=== PATIENT | female | born 1950 | race Asian ===

== ENCOUNTER 2018-05-07 15:26 | Inpatient (IN) | payer MEDICARE ==
[~2018-05-07] VITALS: Ht 165.1 cm; Wt 47.6 kg
[2018-05-07 16:57] LABS: ANION GAP 17 mmol/L (5-15); BLOOD UREA NITROGEN 11 mg/dL (7-18); CALCIUM 8.6 MG/DL (8.5-10.1); CARBON DIOXIDE 17 MMOL/L (21-32); CHLORIDE 91 MMOL/L (98-107); CREATININE 1.2 MG/DL (0.55-1.30); POTASSIUM 4.9 MMOL/L (3.5-5.1); SODIUM 125 MMOL/L (136-145)
[2018-05-07 17:11] LABS: ALANINE AMINOTRANSFERASE 41 U/L (12-78); ALBUMIN 2.1 G/DL (3.4-5.0); ALBUMIN/GLOBULIN RATIO 0.5 (1.0-2.7); ALKALINE PHOSPHATASE 94 U/L (46-116); ASPARTATE AMINO TRANSFERASE 85 U/L (15-37)
[2018-05-07 17:16] LABS: BILIRUBIN,DIRECT 0.7 MG/DL (0.0-0.3)
[2018-05-07 17:33] LABS: HEMATOCRIT 37.1 % (37.0-47.0); HEMOGLOBIN 12.3 G/DL (12.0-16.0); MEAN CORPUSCULAR VOLUME 108 FL (80-99); PLATELET COUNT 53 K/UL (150-450); RED BLOOD COUNT 3.44 M/UL (4.20-5.40); RED CELL DISTRIBUTION WIDTH 14.1 % (11.6-14.8); WHITE BLOOD COUNT 8.7 K/UL (4.8-10.8)
[2018-05-07 17:36] VITALS: BP 98/68
--- NOTE | 2018-05-07 17:37 | NUR ---
ED Nurse Note: PT. AAOX4. BROUGHT IN TO ER WITH LILI FIGUEROA, PICKED UP AT A DRS OFFICE, FOR ABD PAIN, WITH HX OF PANCREATIC CA, PAIN NOT CONTROLLED. NO N/V/D NOTED
[2018-05-07] MEDS ORDERED: HUMALOG100 UNIT/1 SUBQ (18:13)
[2018-05-07] MEDS ORDERED: MIRALAX17 G2 ORAL (18:13)
[2018-05-07] MEDS ORDERED: MULTIVITAMINS1 EAC2 ORAL (18:13)
[2018-05-07] MEDS ORDERED: MIRTAZAPINE7.5 MG ORAL (18:13)
[2018-05-07] MEDS ORDERED: VIREAD300 MG ORAL (18:13)
[2018-05-07] MEDS ORDERED: ZOFRAN ODT8 MG ORAL (18:13)
[2018-05-07] MEDS ORDERED: PANTOPRAZOLE SO40 MG ORAL (18:13)
[2018-05-07] MEDS ORDERED: BOOST GLUCOSE237 ML PO (18:13)
[2018-05-07] MEDS ORDERED: LANTUS SOL100 UNIT/1 SUBQ (18:13)
[2018-05-07] MEDS ORDERED: CREON DR 12,001 EACH PO (18:13)
[2018-05-07] MEDS ORDERED: DOCUSATE SODIU100 MG ORAL (18:13)
[2018-05-07] MEDS ORDERED: DULCOLAX10 MG RC (18:13)
[2018-05-07] MEDS ORDERED: SENNA LAXATIVE1 EAC1 PO (18:13)
[2018-05-07] MEDS ORDERED: VITAMIN D3400 UNI2 PO (18:13)
[2018-05-07] MEDS ORDERED: OXYCODONE HCL5 M2 ORAL (18:13)
[2018-05-07] MEDS ORDERED: PRO-STAT AWC LI30 ML PO (18:13)
[2018-05-07] MEDS ORDERED: REGLAN10 M1 ORAL (18:13)
[2018-05-07 18:14] LABS: APPEARANCE,URINE CLEAR; BILIRUBIN, URINE 1+ (NEGATIVE); GLUCOSE, URINE (UA) NEGATIVE (NEGATIVE); KETONES,URINE 2+ (NEGATIVE); LEUKOCYTE ESTERASE ,URINE 1+ (NEGATIVE); NITRITE,URINE NEGATIVE (NEGATIVE); PH,URINE 6 (4.5-8.0); PROTEIN,URINE 1+ (NEGATIVE); UROBILINOGEN,URINE 8 MG/DL (0.0-1.0)
[2018-05-07] MEDS ORDERED: SENNOSIDES8.6 MG ORAL (18:14)
[2018-05-07 18:15] LABS: COLOR,URINE YELLOW
[2018-05-07] MEDS ORDERED: Morphine Sulfate 2mg/ml Inj ONE (19:10)
[2018-05-07] MEDS ORDERED: Morphine Sulfate 2mg/ml Inj IVP ONE (19:15)
[2018-05-07 19:30] VITALS: BP 112/74
--- NOTE | 2018-05-07 19:35 | NUR ---
ED Nurse Note: binh:
--- NOTE | 2018-05-07 19:51 | NUR ---
ED Nurse Note: Received report. pt in bed asleep. No distress noted. Will continue to monitor.
[2018-05-07 21:30] VITALS: BP 104/64
--- NOTE | 2018-05-07 21:56 | Emergency Room Report ---
History of Present Illness General Chief Complaint: Abdominal Pain Source: EMS Present Illness HPI 67-year-old female presents to ED for evaluation. Brought in by EMS for abdominal pain. From doctor's office. Patient has pancreatic cancer. Patient resides in a [facility] facility. Pain was high so patient was brought to ER. Blood pressure was low. Pain is sharp, 10 out of 10, nonradiating. Denies fevers or chills. Denies nausea or vomiting. Denies diarrhea. No other aggravating relieving factors. Denies any other associated symptoms Allergies: Coded Allergies: No Known Allergies (Unverified , 05/07/18) Patient History Past Medical History: other - pancreatic cancer Past Surgical History: none Pertinent Family History: none Social History: Denies: smoking, alcohol use, drug use Last Menstrual Period: N/A Now: No Immunizations: UTD Reviewed Nursing Documentation: PMH: Agreed; PSxH: Agreed Nursing Documentation-PMH Past Medical History: No History, Except For Hx Cancer: Yes - PANCREATIC Review of Systems All Other Systems: negative except mentioned in HPI Physical Exam Vital Signs Date Time Temp Pulse Resp B/P (MAP) Pulse Ox O2 Delivery O2 Flow Rate FiO2 05/07/18 15:16 96 16 62/35 96 Room Air 05/07/18 17:36 98.0 Sp02 EP Interpretation: reviewed, normal General Appearance: alert, GCS 15, non-toxic, mild distress, cachetic Head: normocephalic, atraumatic Eyes: bilateral eye normal inspection, bilateral eye PERRL ENT: hearing grossly normal, normal pharynx, no angioedema, normal voice Neck: full range of motion, supple/symm/no masses Respiratory: chest non-tender, lungs clear, normal breath sounds, speaking full sentences Cardiovascular #1: regular rate, rhythm, no edema Cardiovascular #2: 2+ carotid (R), 2+ carotid (L), 2+ radial (R), 2+ radial (L) , 2+ dorsalis pedis (R), 2+ dorsalis pedis (L) Gastrointestinal: normal bowel sounds, non tender, soft, non-distended, no guarding, no rebound, tenderness Rectal: deferred Genitourinary: normal inspection, no CVA tenderness Musculoskeletal: back normal, gait/station normal, normal range of motion, non- tender Neurologic: alert, oriented x3, responsive, motor strength/tone normal, sensory intact, speech normal Psychiatric: judgement/insight normal, memory normal, mood/affect normal, no suicidal/homicidal ideation Reflexes: 3+ bicep (R), 3+ bicep (L), 3+ tricep (R), 3+ tricep (L), 3+ knee (R) , 3+ knee (L) Skin: normal color, no rash, warm/dry, well hydrated Lymphatic: no adenopathy Medical Decision Making Diagnostic Impression: Primary Impression: Intractable abdominal pain Additional Impression: Pancreatic cancer Qualified Codes: C25.9 - Malignant neoplasm of pancreas, unspecified ER Course Hospital Course 67 yo F presents to ED c/o abd pain, BP low. h/o pancreatic cancer Differential diagnoses include: BPH, cystitis, pyelonephritis, kidney stone Clinical course Patient placed on stretcher. security monitor. After initial history and physical I ordered labs, IV fluids, pain meds Labs - no leukocytosis, Hb/Hct stable, Na 125, LFts elevated BP initially low. Improved with IV fluids. Patient is DO NOT RESUSCITATE, comfort measures Case discussed with Dr. Robrets and he agreed to accept the patient to his service for further care and support I feel this is a highly complex case requiring extensive working including EKG/ Rhythm strip, Xray/CT/US, Blood/urine lab work, repeat exams while in ED, and administration of strong opiates/narcotics for pain control, admission to hospital or close patient follow up. Diagnosis - intractable abdominal pain, pancreatic cancer Patient admitted to floor in serious condition Labs Test 05/07/18 16:20 05/07/18 17:05 05/07/18 17:27 Sodium Level 125 MMOL/L (136-145) Potassium Level 4.9 MMOL/L (3.5-5.1) Chloride Level 91 MMOL/L (98-107) Carbon Dioxide Level 17 MMOL/L (21-32) Anion Gap 17 mmol/L (5-15) Blood Urea Nitrogen 11 mg/dL (7-18) Creatinine 1.2 MG/DL (0.55-1.30) Estimat Glomerular Filtration Rate 44.8 mL/min (>60) Glucose Level 198 MG/DL (74-106) Calcium Level 8.6 MG/DL (8.5-10.1) Total Bilirubin 2.0 MG/DL (0.2-1.0) Direct Bilirubin 0.7 MG/DL (0.0-0.3) Aspartate Amino Transf (AST/SGOT) 85 U/L (15-37) Alanine Aminotransferase (ALT/SGPT) 41 U/L (12-78) Alkaline Phosphatase 94 U/L (46-116) Total Protein 6.4 G/DL (6.4-8.2) Albumin 2.1 G/DL (3.4-5.0) Globulin 4.3 g/dL Albumin/Globulin Ratio 0.5 (1.0-2.7) Lipase 70 U/L (73-393) White Blood Count 8.7 K/UL (4.8-10.8) Red Blood Count 3.44 M/UL (4.20-5.40) Hemoglobin 12.3 G/DL (12.0-16.0) Hematocrit 37.1 % (37.0-47.0) Mean Corpuscular Volume 108 FL (80-99) Mean Corpuscular Hemoglobin 35.7 PG (27.0-31.0) Mean Corpuscular Hemoglobin Concent 33.1 G/DL (32.0-36.0) Red Cell Distribution Width 14.1 % (11.6-14.8) Platelet Count 53 K/UL (150-450) Mean Platelet Volume 6.7 FL (6.5-10.1) Neutrophils (%) (Auto) % (45.0-75.0) Lymphocytes (%) (Auto) % (20.0-45.0) Monocytes (%) (Auto) % (1.0-10.0) Eosinophils (%) (Auto) % (0.0-3.0) Basophils (%) (Auto) % (0.0-2.0) Differential Total Cells Counted 100 Neutrophils % (Manual) 83 % (45-75) Lymphocytes % (Manual) 8 % (20-45) Monocytes % (Manual) 6 % (1-10) Eosinophils % (Manual) 0 % (0-3) Basophils % (Manual) 1 % (0-2) Band Neutrophils 2 % (0-8) Platelet Estimate Decreased Platelet Morphology Normal Red Blood Cell Morphology Normal Urine Color Yellow Urine Appearance Clear Urine pH 6 (4.5-8.0) Urine Specific [place] 1.020 (1.005-1.035) Urine Protein 1+ (NEGATIVE) Urine Glucose (UA) Negative (NEGATIVE) Urine Ketones 2+ (NEGATIVE) Urine Blood Negative (NEGATIVE) Urine Nitrite Negative (NEGATIVE) Urine Bilirubin 1+ (NEGATIVE) Urine Ictotest Negative (NEGATIVE) Urine Urobilinogen 8 MG/DL (0.0-1.0) Urine Leukocyte Esterase 1+ (NEGATIVE) Urine RBC 0-2 /HPF (0 - 2) Urine WBC 2-4 /HPF (0 - 2) Urine Squamous Epithelial Cells Few /LPF (NONE/OCC) Urine Calcium Oxalate Crystals Few /LPF (NONE) Urine Amorphous Sediment Few /LPF (NONE) Urine Bacteria Few /HPF (NONE) Last Vital Signs Date Time Temp Pulse Resp B/P (MAP) Pulse Ox O2 Delivery O2 Flow Rate FiO2 05/07/18 21:30 97.9 100 14 104/64 97 Room Air Status: improved Disposition: ADMITTED INPATIENT Condition: Serious Referrals: NON PHYSICIAN (PCP) Freddie Steiner MD May 07, 2018 21:56
[2018-05-07 22:35] VITALS: BP 112/77
--- NOTE | 2018-05-07 22:39 | NUR ---
NURSE NOTES: Patient received from [facility] . Patient 67 -yrs old female from ED . Brought from EMS for abdominal pain from doctors office . patient vss, afebrile . patient denies any pain at this time . no sob/ no n/v noted . RH 22 H/L Patent and intact . patient personal belongings checked and patient unable to sign. patient family and MD notified patient location 309 bed 1 . Patient skin intact . patient incontinent of urine . keep clean and dry . call light within reach . bed in low position at all times . will continue to monitor Addendum: 05/08/18 at 0601 by INA SANDS LVN patient bilateral lower extremities swelling noted and elevated with pillows
--- NOTE | 2018-05-07 22:39 | NUR ---
TRANSFER TO FLOOR: Patient transferred to [facility] as ordered, per MD Roberts. Report given to NASEEM Davis. Belongings and medications given to Susan GUSMAN per transport. Pt stable.
[2018-05-08] VITALS: BP 101/67
[2018-05-08] MEDS ORDERED: Morphine Sulfate 2mg/ml Inj IVP PRN (00:45)
--- NOTE | 2018-05-08 02:45 | History and Physical Report ---
DATE OF ADMISSION: 05/07/2018 REASON FOR ADMISSION: Abdominal pain in the setting of pancreatic cancer and malignant ascites. HISTORY: This is a 67-year-old [place]ian female, who has advanced pancreatic carcinoma as well as chronic hepatitis B. she is at a [facility] facility with comfort care measures in place. She receives weekly paracentesis for comfort and the next one is actually scheduled tomorrow. Hers session last week, however, was not performed as she was told she did not have much ascitic fluid to remove. Today, the patient had increasing abdominal pain. She was apparently at her [employer] office because of the pain and low blood pressure readings noted. She was transported to this emergency room. In the ER at [facility], she was given fluid boluses and improved in addition to pain control with intravenous morphine. She is admitted for further care. PAST MEDICAL HISTORY: 1. Pancreatic cancer with malignant ascites. 2. 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 3. Hepatitis B. 4. Malignant ascites. 5. Type 2 diabetes mellitus. 6. Gastroesophageal reflux disease. 7. Depression. 8. Portal hypertension. 9. Protein-calorie malnutrition. 10. History of urinary tract infection. 11. Failure to thrive. 12. Advance directives DNR. MEDICATIONS: Reviewed and reconciled. ALLERGIES: Gadolinium contrast. SOCIAL HISTORY: Negative for history of smoking, alcohol, or substance abuse. FAMILY HISTORY: Noncontributory. REVIEW OF SYSTEMS: No fevers or chills. She does have chronic recurring nausea. She has not had any vomiting today. There is no history of seizures. She has not had any melena or bright red blood per rectum. There is no history of asthma. There is no history of abnormal blood clotting or DVT's. Her diabetes is managed with insulin. There is no history of thyroid disorder. There is no known history of cardiovascular disease. PHYSICAL EXAMINATION: VITAL SIGNS: Afebrile. Blood pressure in the emergency room was 62/35, heart rate 96, respiratory rate 16, and oxygen saturation 96% on room air. Presently, 104/64, pulse 99, respirations 17, and temperature 97.2. HEENT: Temporal wasting. Pale conjunctivae. Dry mucous membranes. No jugular venous distention. LUNGS: Diminished breath sounds. No rales. CARDIAC: Regular rhythm and rate. Normal S1, S2 with no murmur. BREASTS: Atrophic. ABDOMEN: Moderately ascitic. There is mild tenderness in the midepigastric region. No guarding or rebound. EXTREMITIES: Without clubbing, cyanosis, edema, calf tenderness, or cords. NEUROLOGIC: Nonfocal. LABORATORY DATA: Sodium 125, potassium 4.9, chloride 91, bicarb 17, BUN 11, creatinine 1.2, and glucose 198. Albumin 2.1. Amylase and lipase are normal. White count 8.7 and hemoglobin 12.3. Urinalysis with 2 to 4 white cells. IMPRESSION: 1. Abdominal pain due to underlying malignancy and associated complications. 2. Malignant ascites. 3. History of chronic hepatitis B. 4. Severe protein-calorie malnutrition. 5. Hypovolemic shock, improved. 6. Hyponatremia. 7. Hypochloremia. 8. Metabolic acidosis. 9. Type 2 diabetes mellitus with hyperglycemia. PLAN: 1. DNR/DNI. 2. Saline hydration. 3. Discontinue Aldactone. 4. Symptomatic paracentesis. 5. Nutritional support. 6. Volume support by IV route. 7. Pain control. 8. DVT prophylaxis. Alessandro Roberts M.D. DR: DANNY JOB#: [id number] CC:
[2018-05-08 04:00] VITALS: BP 120/77
[2018-05-08] MEDS ORDERED: NovoLOG Insulin Flexpen SUBQ SCH (06:30)
[2018-05-08 07:06] LABS: INR 1.3 (0.9-1.1)
[2018-05-08] MEDS: NovoLOG Insulin Flexpen SUBQ SCH ×4 (07:08→21:00)
[2018-05-08 07:10] LABS: HEMATOCRIT 38.1 % (37.0-47.0); HEMOGLOBIN 12.8 G/DL (12.0-16.0); MEAN CORPUSCULAR VOLUME 106 FL (80-99); PLATELET COUNT 113 K/UL (150-450); RED CELL DISTRIBUTION WIDTH 14.1 % (11.6-14.8); WHITE BLOOD COUNT 10.6 K/UL (4.8-10.8)
[2018-05-08 07:20] LABS: ALANINE AMINOTRANSFERASE 42 U/L (12-78); ALBUMIN 1.9 G/DL (3.4-5.0); ALKALINE PHOSPHATASE 78 U/L (46-116); ANION GAP 11 mmol/L (5-15); ASPARTATE AMINO TRANSFERASE 70 U/L (15-37); BILIRUBIN,TOTAL 1.9 MG/DL (0.2-1.0); BLOOD UREA NITROGEN 13 mg/dL (7-18); CALCIUM 8.7 MG/DL (8.5-10.1); CARBON DIOXIDE 24 MMOL/L (21-32); CHLORIDE 98 MMOL/L (98-107); CREATININE 1.2 MG/DL (0.55-1.30); POTASSIUM 5.1 MMOL/L (3.5-5.1); SODIUM 132 MMOL/L (136-145)
--- NOTE | 2018-05-08 07:43 | NUR ---
NURSE NOTES: Received report from Roro RODRIGEZ. On rounds, patient is awake and alert, no s/s acute distress noted. IVF running per order through right hand IV, IV is asymptomatic. Fall precautions maintained. Called ultrasound and reported that patient's platelets are low and PT/INR is high, US tech reported that she will report results to radiologist. Side rails upx3, bed low and locked, call light in reach. Will continue to monitor.
--- NOTE | 2018-05-08 07:43 | NUR ---
HAND-OFF: Report given to Kisha Berger Patient i stable conditions.
[2018-05-08 08:00] VITALS: BP 109/75
--- NOTE | 2018-05-08 08:04 | NUR ---
NURSE NOTES: Spoke with Jessica in US. Reported that no anticoagulants have been given while patient has been on unit, patient was admitted last night after 2200, unknown if patient was given any anticoagulants prior to admission, I reported this to Jessica. Jessica reports she will report this and lab results to radiologist. Will continue to monitor.
[2018-05-08] MEDS: Pancrease Cap ORAL SCH ×3 (09:25→18:00)
--- NOTE | 2018-05-08 09:46 | NUR ---
NURSE NOTES: Patient taken down for ultrasound.
--- NOTE | 2018-05-08 10:00 | NUR ---
NURSE NOTES: Called Dr. Roberts's office and left message with MD's wood model maker, reported that patient's platelet count is low at 113. Awaiting callback with further orders from MD. Will continue to monitor.
--- NOTE | 2018-05-08 10:10 | Pre-Procedure Note/Attestation ---
Pre-Procedure Note/Attestation Complete Prior to Procedure Planned Procedure: not applicable Procedure Narrative: Paracentesis Indications for Procedure Pre-Operative Diagnosis: Ascites Attestation I attest that I discussed the nature of the procedure; its benefits; risks and complications; and alternatives (and the risks and benefits of such alternatives ), prior to the procedure, with the patient (or the patient's legal business representative). I attest that, if there was a reasonable possibility of needing a blood transfusion, the patient (or the patient's legal business representative) was given the [facility] standardized written summary, pursuant to the Tony Irlanda Blood Safety Act ([place] Health and Safety Code # 1645, as amended). I attest that I re-evaluated the patient just prior to the surgery and that there has been no change in the patient's H&P, except as documented below: Pramod Kimball MD May 08, 2018 10:09
--- NOTE | 2018-05-08 10:11 | Brief Operative Note ---
Immediate Post Operative Note Operative Note Chief Complaint: distention Pre-op Diagnosis: Ascites Procedure: Paracentesis Post-op Diagnosis: same as pre-op Surgeon: Vijay Mayorga Anesthesia: local Specimen: yes - cloudy yellow fluid Complications: none Condition: stable Fluids: none Implant(s) used?: No Pramod Mayorga MD May 08, 2018 10:10
--- NOTE | 2018-05-08 10:13 | NUR ---
NURSE NOTES: Spoke with Dr. Roberts regarding patient's platelet count, MD is aware that platelet's are 113. MD ordered to give heparin as ordered and to not hold due to patient's high risk for VTE status. Inquired if MD would like hold parameters for heparin, MD did not give hold parameters. Informed MD that sodium is 134, MD ordered to continue IVF as ordered. Will continue to monitor.
--- NOTE | 2018-05-08 11:02 | NUR ---
NURSE NOTES: Patient returned from ultrasound. No s/s acute distress. Per report from [facility], 3900mL of abdominal paracentesis fluid removed. Specimen sent to lab for testing per MD order. Will continue to monitor.
[2018-05-08 12:00] VITALS: BP 105/65
--- NOTE | 2018-05-08 12:17 | Diagnostic Imaging Report ---
Indications: Ascites Technique: Ultrasound used to localize optimal puncture site. Sterile prepping and draping . Local anesthesia with 1% lidocaine. Under real-time ultrasound guidance, puncture peritoneal space using paracentesis needle. Stylet removed. Catheter placed to vacuum bottle suction. Total 3.9 liters of cloudy yellow fluid aspirated. Patient tolerated procedure well, without immediate complication. A specimen was sent to the lab Findings: Followup sonography demonstrates complete resolution of peritoneal fluid. Impression: Successful ultrasound-guided paracentesis, yielding 3.9 liters of fluid
--- NOTE | 2018-05-08 13:22 | NUR ---
NURSE NOTES: Placed patient on SPR air mattress for prophylactic skin protection.
[2018-05-08] MEDS: Heparin 5000 units/ml inj SUBQ SCH ×2 (14:35→21:43)
[2018-05-08 16:00] VITALS: BP 111/72
--- NOTE | 2018-05-08 19:25 | NUR ---
NURSE NOTES: Report taken from NASEEM Beard. patient is awake and in bed, A&Ox3. No signs of distress on room air. IV site c/d/i and patent. Patients skin is intact, on SPR mattress. States that pain is 4/10 currently. Somewhat incontinent but does use bedpan for self voiding. Platelet count low and MD made aware. Kisha endorsed that MD would like to continue Heparin injections despite platelet count since patient is bedbound. Bed in lowest position, call light within reach.
--- NOTE | 2018-05-08 19:30 | NUR ---
HAND-OFF: Report given to Randell GUSMAN. Patient in stable condition.
[2018-05-08 20:00] VITALS: BP 114/74
--- NOTE | 2018-05-08 20:15 | Progress Note ---
DATE: 05/08/2018 INTERNAL MEDICINE PROGRESS NOTE SUBJECTIVE: The patient is more alert. Still withdrawn and lethargic overall. Her pain control in the abdomen is better. She underwent paracentesis earlier today. OBJECTIVE: VITAL SIGNS: Blood pressure 109/75, pulse 97, and respirations 18. Afebrile. LUNGS: Clear. CARDIAC: Regular. Normal S1, S2. ABDOMEN: Soft. drawbridge tender in the mid upper quadrant area. The peritoneal fluid was cloudy in appearance. No complications were noted. EXTREMITIES: Without edema. IMPRESSION: 1. Possible peritonitis. 2. Metastatic pancreatic carcinoma. 3. Ascites, malignant. 4. Hyponatremia, improved with sodium increasing from 125 to 132. 5. Hypochloremia, resolved. 6. Type 2 diabetes mellitus, on insulin by sliding scale. 7. Lactic acidosis, resolved. 8. Severe protein-calorie malnutrition. PLAN: 1. DVT prophylaxis. 2. Adjust intravenous fluids. 3. Empiric antimicrobials. 4. Insulin coverage by sliding scale. 5. Pain control. 6. Await urine cultures of the peritoneal fluid and cell count. Alessandro Roberts M.D. DR: DANNY JOB#: [id number] CC:
--- NOTE | 2018-05-08 21:00 | NUR ---
NURSE NOTES: Patient refused insulin coverage, BS 142.
[2018-05-08] MEDS: Piperacillin/Tazobactam 3.375 GM in NS 110 ML IVPB SCH (21:35)
[2018-05-09] VITALS (7 sets, daily range): BP systolic 111–119; BP diastolic 73–82
[2018-05-09] MEDS: Piperacillin/Tazobactam 3.375 GM in NS 110 ML IVPB SCH ×3 (05:40→21:15)
[2018-05-09] MEDS: Heparin 5000 units/ml inj SUBQ SCH ×3 (05:41→21:24)
[2018-05-09] MEDS: NovoLOG Insulin Flexpen SUBQ SCH ×4 (05:42→21:25)
--- NOTE | 2018-05-09 07:25 | NUR ---
HAND-OFF: Report given to NASEEM Montgomery. Addendum: 05/09/18 at 0736 by Randell Nunes RN NASEEM Garcia Patient began asking for laxatives to help with bowel movement. endorsed to Jose.
--- NOTE | 2018-05-09 07:30 | NUR ---
NURSE NOTES: Received report from NASEEM Mejias. Rounding done with outgoing nurse. Patient a/o x4 lying on the bed. Denies any pain at this time. Patient stated did not BM for 4 days. Will notify to Dr. Roberts. Bed in lowest position, call light within reach. Will continue to monitor.
--- NOTE | 2018-05-09 08:00 | NUR ---
NURSE NOTES: Called Dr. Roberts and left the message. Waiting for MD call back.
[2018-05-09] MEDS: Pancrease Cap ORAL SCH ×3 (08:53→17:41)
--- NOTE | 2018-05-09 09:55 | NUR ---
NURSE NOTES: MD did not call back. Called Dr. Roberts and left message again.
[2018-05-09] MEDS: Docusate 250mg cap ORAL SCH (10:12)
[2018-05-09] MEDS ORDERED: Milk of Magnesia 30ml Ud ORAL SCH (10:30)
--- NOTE | 2018-05-09 10:30 | NUR ---
NURSE NOTES: Dr. Roberts ordered laxatives and will be given as ordered.
--- NOTE | 2018-05-09 12:05 | NUR ---
RD ASSESSMENT & RECOMMENDATIONS SEE CARE ACTIVITY FOR COMPLETE ASSESSMENT DAILY ESTIMATED NEEDS: Needs based on CA dx, underweight/ 42kg 30-40 kcals/kg 9032-8498 total kcals 1-1.5 g protein/kg 42-63 g total protein 20-25 mL/kg 840-1050 total fluid mLs NUTRITION DIAGNOSIS: Increased kcal/prot needs R/T catabolic dx, underweight status as evidenced by dx of metastatic pancreatic carcinoma, pt noted w/ mild-moderate generalized wasting, 95% IBW, currently w/ poor PO intake CURRENT DIET:CCHO HIGH/ pureed moist PO DIET RECOMMENDATIONS: Liberalized REGULAR diet w/ poor PO intake, texture as tolerated or per GLOBAL ACCOUNT MANAGER ADDITIONAL RECOMMENDATIONS: * RECALIBRATED bedscale wt for accurate CBW- w/ added SPR mattress * Glucerna 1 tetra aide BID in b/w meals * Monitor PO tolerance- pancreatic CA * GLOBAL ACCOUNT MANAGER eval for appropriate texture- on pureed moist texture at this time * W/ PO intake consistently >50%: LOW NA, CCHO LOW diet
--- NOTE | 2018-05-09 13:30 | NUR ---
NURSE NOTES: plt was [address] Roberts notified regarding heparin. said hold for now. Noted and carried out.
--- NOTE | 2018-05-09 16:28 | Internal Med Progress Note ---
Subjective Date of Service: May 09, 2018 Physician Name Alessandro Roberts Attending Physician Alessandro Roberts MD Current Medications Medications (Trade) Dose Ordered Sig/Bella Route PRN Reason Start Time Stop Time Status Last Admin Dose Admin Amylase/Lipase/ Protease (Pancrease) 2 ea THREE TIMES A DAY ORAL 05/08/18 09:00 06/07/18 08:59 05/09/18 13:34 Bisacodyl (Dulcolax) 10 mg DAILYPRN PRN RECTAL Constipation 05/09/18 10:30 06/08/18 10:29 Dextrose (Dextrose 50%) 25 ml Q30M PRN IV Hypoglycemia 05/08/18 00:45 06/07/18 00:44 Dextrose (Dextrose 50%) 50 ml Q30M PRN IV Hypoglycemia 05/08/18 00:45 06/07/18 00:44 Docusate Sodium (Colace) 250 mg DAILY ORAL 05/09/18 10:30 06/08/18 10:29 05/09/18 10:12 Heparin Sodium (Porcine) (Heparin 5000 units/ml) 5,000 units EVERY 8 HOURS SUBQ 05/08/18 14:00 06/07/18 13:59 05/09/18 05:41 Insulin Aspart (NovoLOG) BEFORE MEALS AND HS SUBQ 05/08/18 06:30 06/07/18 06:29 05/09/18 12:06 Magnesium Hydroxide (Mom) 30 ml HSPRN PRN ORAL Constipation 05/09/18 21:00 06/08/18 20:59 Morphine Sulfate (Morphine Sulfate) 2 mg Q4H PRN IVP For Pain 05/08/18 00:45 05/15/18 00:44 Ondansetron HCl (Zofran) 4 mg Q6H PRN IVP Nausea & Vomiting 05/08/18 00:45 06/07/18 00:44 05/08/18 09:35 Oxycodone HCl (Roxicodone) 5 mg Q4H PRN ORAL Breakthrough Pain 05/08/18 00:45 05/15/18 00:44 Pantoprazole (Protonix) 40 mg DAILY ORAL 05/08/18 09:00 06/07/18 08:59 05/09/18 08:53 Piperacillin Sod/ Tazobactam Sod 3.375 gm/Sodium Chloride 110 ml @ 27.5 mls/hr Q8HR IVPB 05/08/18 22:00 05/15/18 21:59 05/09/18 13:34 Sodium Chloride 1,000 ml @ 75 mls/hr [id number] IV 05/08/18 17:05 06/07/18 17:04 05/09/18 01:55 Tenofovir Disoproxil Fumarate (Viread) 300 mg DAILY ORAL 05/08/18 09:00 06/07/18 08:59 UNV Allergies: Coded Allergies: No Known Allergies (Unverified , 05/07/18) Objective Last Vital Signs Date Time Temp Pulse Resp B/P (MAP) Pulse Ox O2 Delivery O2 Flow Rate FiO2 05/09/18 12:00 97.7 83 16 119/82 (94) 96 05/09/18 09:00 Room Air Microbiology Date/Time Source Procedure Growth Status 05/07/18 20:10 Nasal Nares MRSA Culture - Final NO METHICILLIN RESISTANT STAPH AUREUS... Complete 05/07/18 20:10 Rectum VRE Culture - Final NO VANCOMYCIN RESISTANT ENTEROCOCCUS ... Complete 05/07/18 20:10 Rectum - Final NO CARBAPENEM-RESISTANT ENTEROBACTERI... Complete Intake and Output 05/08/18 05/09/18 19:00 07:00 Intake Total 1460 ml 380 ml Output Total 3200 ml Balance 1460 ml -2820 ml Intake Oral 560 ml 380 ml IV Total 900 ml Output Urine Total 3200 ml # Voids 1 Assessment/Plan Status Narrative Nurse documented at 9:55am that "i did not call back for orders regarding patient's constipation" This is inaccurate. As reflected in record, orders were entered for such medications at 9:56am. There is no urgency for such meds to be called in before that, as I was making rounds, and planned to see the patient before any orders. Alessandro Roberts MD May 09, 2018 16:28
--- NOTE | 2018-05-09 17:40 | NUR ---
NURSE NOTES: Dr. Roberts came and asked lab for body fluid which was collected 05/07 was cancelled. Called laboratory to find out. They said that will find and call me back.
--- NOTE | 2018-05-09 18:30 | NUR ---
NURSE NOTES: Laboratory called and mentioned. They found the body fluid specimen from the refrigerators and will find out the result. Dr. Roberts notified.
--- NOTE | 2018-05-09 19:25 | NUR ---
HAND-OFF: Report given to NASEEM Mejias.
--- NOTE | 2018-05-09 19:30 | NUR ---
NURSE NOTES: Report taken from NASEEM Garcia. Patient is asleep in bed, arousable with name, A&Ox3 when she is awake. Patient took laxative earlier per order, voided during shift change. Patient is still able to notify RN for bedpan. IV site c/d/i and patent. Patient stated that she wanted to be left alone through the night. RN had to explain the risks and benefits of missing medications. Contacted MD regarding low plt count 113. MD wants to continue heparin administration. Skin is c/d/i, patient on SPR mattress. Bed in lowest position, call light within reach.
[2018-05-09] MEDS ORDERED: Milk of Magnesia 30ml Ud ORAL PRN (21:00)
--- NOTE | 2018-05-09 23:45 | Progress Note ---
DATE: 05/09/2018 SUBJECTIVE: The patient feels better. Less abdominal distention and pain. She is status post paracentesis yesterday. The fluid was cloudy. Despite orders, it was not sent for culture. The patient complains of constipation. OBJECTIVE: VITAL SIGNS: Blood pressure 119/82, pulse 83, respirations 16, afebrile. LUNGS: Diminished breath sounds. CARDIAC: Regular rhythm and rate. Normal S1, S2 with a fourth heart sound. ABDOMEN: Slightly distended. Minimal ascites. Mildly tender in the midepigastric region. EXTREMITIES: No edema is noted. No calf tenderness or cords. LABORATORY DATA: No new lab studies today. IMPRESSION: 1. Metastatic pancreatic carcinoma. 2. Malignant ascites, status post paracentesis. 3. Abdominal pain, multifactorial. 4. Thrombocytopenia, stable. 5. Lactic acidosis, resolved. 6. Hyponatremia, improved with hydration. 7. Severe protein-calorie malnutrition. PLAN: 1. Continue subcutaneous heparin for DVT prophylaxis. 2. Taper off IV fluids. 3. Empiric antimicrobials. 4. Pain control. 5. Discharge planning. Alessandro Roberts M.D. DR: JENN JOB#: [id number] CC:
[2018-05-10 04:00] VITALS: BP 116/70
[2018-05-10] MEDS: Piperacillin/Tazobactam 3.375 GM in NS 110 ML IVPB SCH ×3 (05:33→21:24)
[2018-05-10] MEDS: Heparin 5000 units/ml inj SUBQ SCH ×3 (05:34→21:29)
[2018-05-10] MEDS: NovoLOG Insulin Flexpen SUBQ SCH ×4 (06:30→21:34)
--- NOTE | 2018-05-10 06:36 | NUR ---
NURSE NOTES: Patient refused novolog coverage, blood sugar of 131
[2018-05-10 06:38] LABS: HEMATOCRIT 38.1 % (37.0-47.0); HEMOGLOBIN 13.1 G/DL (12.0-16.0); MEAN CORPUSCULAR VOLUME 106 FL (80-99); PLATELET COUNT 92 K/UL (150-450); RED BLOOD COUNT 3.59 M/UL (4.20-5.40); RED CELL DISTRIBUTION WIDTH 14.5 % (11.6-14.8); WHITE BLOOD COUNT 7.4 K/UL (4.8-10.8)
[2018-05-10 07:16] LABS: ALANINE AMINOTRANSFERASE 35 U/L (12-78); ALBUMIN 1.6 G/DL (3.4-5.0); ALBUMIN/GLOBULIN RATIO 0.5 (1.0-2.7); ALKALINE PHOSPHATASE 80 U/L (46-116); ANION GAP 8 mmol/L (5-15); ASPARTATE AMINO TRANSFERASE 60 U/L (15-37); BILIRUBIN,TOTAL 1.1 MG/DL (0.2-1.0); BLOOD UREA NITROGEN 6 mg/dL (7-18); CALCIUM 7.6 MG/DL (8.5-10.1); CARBON DIOXIDE 23 MMOL/L (21-32); CHLORIDE 103 MMOL/L (98-107); CREATININE 0.9 MG/DL (0.55-1.30); POTASSIUM 2.9 MMOL/L (3.5-5.1); SODIUM 134 MMOL/L (136-145)
[2018-05-10 07:17] LABS: BILIRUBIN,DIRECT 0.6 MG/DL (0.0-0.3)
--- NOTE | 2018-05-10 07:30 | NUR ---
HAND-OFF: Report given to NASEEM Boss.
--- NOTE | 2018-05-10 07:45 | NUR ---
NURSE NOTES: Report received from outgoing RN, rounds made. Patient sitting in semi-fowlers position in bed. Patient alert, calm. Denies SOB/pain/NV. IVF infusion to right hand 0.9 NS at 75 ml/hr, site asymptomatic. Call light in reach, bed in lowest position, will continue to monitor.
[2018-05-10 08:00] VITALS: BP 110/74
[2018-05-10] MEDS: Pancrease Cap ORAL SCH ×3 (09:44→18:14)
[2018-05-10] MEDS: Docusate 250mg cap ORAL SCH (09:44)
[2018-05-10 12:00] VITALS: BP 116/79
--- NOTE | 2018-05-10 12:45 | NUR ---
NURSE NOTES: Dr. Roberts notified of K level 2.9, Na 134 and Platelets 92. See updated orders. Administered KDUR 40 MEQ as ordered. IVF discontinued at 1240 as ordered. Patient remains stable. Will continue to monitor.
[2018-05-10 16:00] VITALS: BP 130/72
--- NOTE | 2018-05-10 17:45 | NUR ---
NURSE NOTES: Patient had small amount of emesis (50 ml), denies need for Zofran. Last medicated with Zofran at 1434 complains of nausea (no emesis), after first dose of KDUR. Will continue to monitor.
--- NOTE | 2018-05-10 19:45 | NUR ---
NURSE NOTES: Received report from NASEEM Boss. Received pt in bed, asleep, easily arousable by vebal stimuli, c/o abdominal discomfort, will medicate for pain, no distress noted. Bed in lowest position and locked, side rails up x 2, call light within reach. Will continue to monitor.
--- NOTE | 2018-05-10 19:50 | NUR ---
HAND-OFF: Report given to Jairon Bang RN.
[2018-05-10 20:00] VITALS: BP 126/86
[2018-05-10] MEDS: oxyCODONE 5mg IR tab ORAL PRN (21:22)
--- NOTE | 2018-05-11 02:15 | Progress Note ---
DATE: 05/10/2018 INTERNAL MEDICINE PROGRESS NOTE SUBJECTIVE: The patient is feeling better. No abdominal pain. Tolerating some diet. Peritoneal fluid did not have any malignant cells noted and fluid culture remains negative to date. OBJECTIVE: LUNGS: Clear. CARDIAC: Regular rate. Normal S1 and S2. ABDOMEN: Soft. There is mild midepigastric tenderness. EXTREMITIES: No edema. LABORATORY DATA: White count 7.4 and hemoglobin 13. Potassium 2.9 and magnesium 1.8. Albumin 1.6. Platelet count 106,000. IMPRESSION: 1. Metastatic pancreatic carcinoma. 2. Recurring ascites. 3. Possible peritonitis. Cultures may be negative due to antimicrobials given at custodial. 4. Hyponatremia, improved. 5. Hypokalemia, persisting. PLAN: 1. Replace potassium. 2. Continue IV antimicrobials. 3. Followup cultures. 4. Discontinue intravenous fluids. 5. Discharge planning. 6. DNR. Alessandro Roberts M.D. DR: LYNETTE JOB#: [id number] CC:
[2018-05-11 04:00] VITALS: BP 115/79
[2018-05-11] MEDS: Piperacillin/Tazobactam 3.375 GM in NS 110 ML IVPB SCH ×2 (05:05→13:45)
[2018-05-11] MEDS: Heparin 5000 units/ml inj SUBQ SCH ×2 (05:06→13:48)
[2018-05-11] MEDS: NovoLOG Insulin Flexpen SUBQ SCH ×3 (06:14→17:25)
[2018-05-11 07:04] LABS: ANION GAP 7 mmol/L (5-15); BLOOD UREA NITROGEN 7 mg/dL (7-18); CALCIUM 8.2 MG/DL (8.5-10.1); CARBON DIOXIDE 24 MMOL/L (21-32); CHLORIDE 105 MMOL/L (98-107); CREATININE 0.9 MG/DL (0.55-1.30); POTASSIUM 3.9 MMOL/L (3.5-5.1); SODIUM 136 MMOL/L (136-145)
--- NOTE | 2018-05-11 07:39 | NUR ---
HAND-OFF: Report given to NASEEM Boss. Pt in stable condition.
--- NOTE | 2018-05-11 07:45 | NUR ---
NURSE NOTES: Report received, rounds made. Patient resting in semi-fowlers position, alert/calm. Air mattress in place, skin intact. Right hand heplock in place/intact. Denies NV/SOB on RA/Pain. Call light in reach, bed in lowest position, will continue to monitor.
[2018-05-11 08:00] VITALS: BP 111/76
[2018-05-11] MEDS: Docusate 250mg cap ORAL SCH ×2 (09:00→09:54)
[2018-05-11] MEDS: Pancrease Cap ORAL SCH ×3 (09:54→18:00)
[2018-05-11 12:00] VITALS: BP 139/89
[2018-05-11] MEDS: oxyCODONE 5mg IR tab ORAL PRN (14:14)
--- NOTE | 2018-05-11 14:18 | NUR ---
*-* DISCHARGE PLANNING *-* PATIENT HAS BEEN REFERRED BACK TO: [facility] P:[phone] F:[phone] SPOKE TO NILA
--- NOTE | 2018-05-11 15:00 | NUR ---
NURSE NOTES: Patient complains of abdominal pain, medicated with oxycodone 5 mg, patient had small emesis shortly after. Dr. Roberts notified, plans for discharge to SNF today, will medicate with Zofran prior to transfer as ordered.
--- NOTE | 2018-05-11 15:38 | NUR ---
*-* DISCHARGE PLANNED *-* PATIENT IS DISCHARGED TO: [facility]# [facility]-A SKILLED T:[phone] FOR NURSE TO NURSE REPORT [facility] HAS BEEN ARRANGED FOR [facility] AT 1730 S/W CALI [id number]
[2018-05-11 16:00] VITALS: BP 123/80
[2018-05-11] MEDS ORDERED: LEVOFLOXACIN250 MG ORAL (16:59)
--- NOTE | 2018-05-11 17:20 | NUR ---
NURSE NOTES: Patient aware of discharge orders for today, verbalized understanding. Patient scheduled to transfer back to SNF ([facility]) today via [facility]. Report called to Rach GUSMAN at [facility]. Patient's sister Chano Cross aware of discharge order for today and time of transfer.
[2018-05-11] MEDS ORDERED: NS 275ml ONE (18:22)
[2018-05-11] MEDS ORDERED: Tubing IV Secondary IV ONE (18:22)
--- NOTE | 2018-05-11 18:30 | NUR ---
NURSE NOTES: Patient medicated with Zofran 4 mg PO at 1820. IV discontinued. Rach GUSMAN at [facility] called and notified. Report given to [facility]. All belonging sent with patient. Patient transferred via [facility] in stable condition at 1830.
--- NOTE | 2018-05-11 23:00 | Progress Note ---
DATE: 05/11/2018 INTERNAL MEDICINE PROGRESS NOTE: SUBJECTIVE: No abdominal pain. Some nausea. Poor tolerance to some oral medications. Tolerating diet. Appetite fair. OBJECTIVE: VITAL SIGNS: Blood pressure 123/80, pulse 81, respirations 18. LUNGS: Clear. CARDIAC: Regular. Normal S1, S2 with no new murmur. ABDOMEN: Slightly tender in the midepigastric region. No guarding or rebound. EXTREMITIES: No edema. LABORATORY DATA: Potassium is 3.9, BUN 7, creatinine 0.9. IMPRESSION: 1. Metastatic pancreatic carcinoma. 2. Ascites, status post paracentesis. 3. Suspected peritonitis. Cultures negative due to prior antibiotic use. 4. Severe protein-calorie malnutrition. 5. Resolved hyponatremia and hypochloremia. PLAN: 1. Discontinue IV fluids. 2. No resumption of Aldactone. 3. Oral pain medications as needed. 4. Complete empiric antibiotics for peritonitis with oral Levaquin. 5. DNR/DNI. Alessandro Roberts M.D. DR: JENN JOB#: [id number] CC:
--- NOTE | 2018-05-14 08:35 | Discharge Summary ---
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 Last session was not performed, since she was told she did not have much ascitic fluid to remove. Prior to presentation to ED , patient reported increased abdominal pain. 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 Patient was transferred to emergency room for further evaluation and management. In the emergency room blood pressure was 62/35. Laboratory workup revealed no leukocytosis , stable hemoglobin hematocrit. Platelet count 53. Sodium 125. LFT elevated. Fluid boluses provided, and blood pressure subsequently responded to fluid challenge. Patient was medicated for pain and admitted to medical surgical floor for further management. HOSPITAL COURSE: Patient admitted to medical surgical floor. Patient initially started on IV hydration with saline. Aldactone was discontinued. Patient started on empiric antibiotics for suspected spontaneous bacterial peritonitis with oral Levaquin. Nutritional support provided. Pain management was addressed , and pain was controlled. DVT prophylaxis provided. On 05/08 patient undergone therapeutic paracentesis which yielded 3.9 L of fluid. Ascitic fluid culture was negative, possibly due to prior antibiotic use. Cytology of ascitic fluid was negative for malignant cells. Complete antibiotic course at the facility. Blood pressure stabilized, and IV fluids were discontinued. Bowel regimen instituted. Renal parameters and electrolytes were closely monitored. Electrolytes corrected as needed. GI prophylaxis continued. Pancrease continued. Antiemetic provided as needed. Prior to discharge sodium 136 potassium 3.9. Total bilirubin and LFT were closely monitored. Total bilirubin from initial 2.0 down to 1.1. AST from 85 down to 60. Lactic acidosis resolved: lactic acid from initial 4.0 down to 1.6. Platelet count was closely monitored: from initial 53 up to 92 upon discharge. Patient clinically stabilized and was ready for transfer back to detention facility . FINAL DIAGNOSES: Metastatic pancreatic carcinoma Recurrent ascites , status post paracentesis Suspected spontaneous bacterial peritonitis Abdominal pain due to underlying malignancy and associated complications- controlled Chronic hepatitis B Severe protein calorie malnutrition Hypovolemic shock -resolved Hyponatremia and hypochloremia -resolved Lactic acidosis-resolved Type 2 diabetes mellitus Thrombocytopenia - stable DISCHARGE MEDICATIONS: See Medication Reconciliation list. DISCHARGE INSTRUCTIONS: Patient was discharged to the detention facility. Follow up with medical doctor at the facility. I have been assigned to dictate discharge summary for this account. I was not involved in the patient's management. Suzan Mreino NP May 14, 2018 08:35
== END 2018-05-11 18:23 | DRG 947 ==
LOC: EDBD 15:26 → EMR 16:00 → 3E 18:55 → EDBEDREQ 20:36 → 3E 23:21
PROC: 0W9G3ZZ Drainage of Peritoneal Cavity, Percutaneous Approach (ICD-10-PCS; principal; 2018-05-08)
DX: G89.3 Neoplasm related pain (acute) (chronic) (principal); E43 Unspecified severe protein-calorie malnutrition; K65.9 Peritonitis, unspecified; C25.9 Malignant neoplasm of pancreas, unspecified; C78.7 Secondary malignant neoplasm of liver and intrahepatic bile duct; Z68.1 Body mass index [BMI] 19.9 or less, adult; E87.1 Hypo-osmolality and hyponatremia; E87.2 Acidosis; C78.89 Secondary malignant neoplasm of other digestive organs; B19.10 Unspecified viral hepatitis B without hepatic coma; R57.1 Hypovolemic shock; R18.0 Malignant ascites; K21.9 Gastro-esophageal reflux disease without esophagitis; Z66 Do not resuscitate; Z91.041 Radiographic dye allergy status; E87.8 Other disorders of electrolyte and fluid balance, not elsewhere classified; E11.65 Type 2 diabetes mellitus with hyperglycemia; R62.7 Adult failure to thrive; D69.6 Thrombocytopenia, unspecified
CPT/HCPCS: 36415; 76942; 80048; 80053; 80076; 81003; 82248; 82962; 83605; 83690; 83735; 85007; 85025; 85610; 85730; 87070; 87081; 87205; 89051; 96361; 96374; 96375; 99285; J1815; J2405; J8499